=== PATIENT | male | born 1935 | race Caucasian/White ===

== ENCOUNTER 2019-03-30 08:56 | Emergency (ER) | payer OTHER ==
[2019-03-30] MEDS ORDERED: Sodium Chloride 0.9% 10 ML Syringe FLUSH PRN (09:17)
--- NOTE | 2019-03-30 10:02 | CT ---
Clinical history: 83-year-old 188 pound male with headache and "slurred speech", past 2 days. No known trauma. Scan technique: Volume acquisition of data emergency unenhanced CT scan of the head and brain obtained while the patient was lying supine on the Siemens multi slice scanner [place], [place]. All data archived in the PACS system for storage, reformatting axial/sagittal/coronal planes and study. Interpretation: Abnormal. 1. Lacunar infarct thalamus, basal ganglia, deep in the left cerebral hemisphere. Multiple scattered low-attenuation (ischemic) lesions throughout the periventricular white matter of both cerebral hemispheres. Mild atrophy. 2. Symmetric mirror-image normal appearing ventricular system i.e. no hydrocephalus. Punctate pineal and symmetric dense choroid plexus calcifications. No sign of acute intracerebral/intraventricular/subarachnoid bleed. 3. Uniformly thick bony calvarium without sign of pathologic skeletal lesion, fracture, underlying brain contusion or epidural/subdural hematoma. Symmetric clear pneumatization of the paranasal and mastoid sinuses. 4. Cerebellum and brainstem unremarkable. CONCLUSION: Multi-infarct ischemic disease both cerebral hemispheres (largest lacunar infarct thalamus, on the left). No sign of intracranial mass, hydrocephalus or bleed.
[2019-03-30 10:33] LABS: ANION GAP 15.3; CHLORIDE,CL 100 mmol/L (101-111); SODIUM,NA 137 mmol/L (135-145)
--- NOTE | 2019-03-30 10:46 | EDM.PDOC ---
ED HPI GENERAL MEDICAL PROBLEM - General Chief Complaint: Neuro Symptoms/Deficits Stated Complaint: SIDE HEADACH [id number] Time Seen by Provider: 03/30/19 09:30 Source of Information: Reports: Patient, RN, RN Notes Reviewed History Limitations: Reports: No Limitations - History of Present Illness INITIAL COMMENTS - FREE TEXT/NARRATIVE: Patient presents to ER with complaint of passing out on Saturday (just before noon) unwtnessed he states at [place]. He hit his head "old lady" tried to pick him up. He has had no headaches, recent illness, fever, chills, nausea, vomiting , diarrhea, weakness, numbness, tingling and pain. Onset Date: 03/28/19 Duration: Constant Location: Reports: Head Quality: Reports: Ache Severity: Moderate Improves with: Reports: None Worsens with: Reports: None Associated Symptoms: Reports: No Other Symptoms Right Head Pain Score (Numeric/FACES): 2 - Related Data Allergies Allergy/AdvReac Type Severity Reaction Status Date / Time No Known Allergies Allergy Verified 03/30/19 09:19 Past Medical History Cardiovascular History: Reports: High Cholesterol Social & Family History - Tobacco Use Smoking Status *Q: Never Smoker - Recreational Drug Use Recreational Drug Use: No ED ROS GENERAL - Review of Systems Review Of Systems: ROS reveals no pertinent complaints other than HPI. - Physical Exam Exam: See Below Exam Limited By: No Limitations General Appearance: Alert, WD/WN, No Apparent Distress Eye Exam: Bilateral Eye: Other (Pupils 2 brisk) Ears: Normal External Exam, Normal Canal, Hearing Grossly Normal, Normal TMs Throat/Mouth: Normal Inspection, Normal Lips, Normal Teeth, Normal Gums, Normal Oropharynx, Normal Voice, No Airway Compromise Head Exam: Atraumatic, Normocephalic Neck: Normal Inspection, Supple, Non-Tender, Full Range of Motion Respiratory/Chest: Crackles (bases), Wheezing, Other (diminished breath sounds) Cardiovascular: Normal Peripheral Pulses, Regular Rate, Rhythm, No Edema, No Gallop, No JVD, No Murmur, No Rub GI/Abdominal: Normal Bowel Sounds, Soft, Non-Tender, No Organomegaly, No Distention, No Abnormal Bruit, No Mass (Male) Exam: Deferred Rectal (Males) Exam: Deferred Neuro Exam (Abbreviated): Alert, Oriented, CN II-XII Intact, Normal Cognition, Normal Gait, Normal Reflexes, No Motor/Sensory Deficits Back Exam: Normal Inspection, Full Range of Motion, NT Extremities: Normal Inspection, Normal Range of Motion, Non-Tender, No Pedal Edema, Normal Capillary Refill Psychiatric: Normal Affect, Normal Mood Skin Exam: Warm, Dry, Intact, Normal Color, No Rash Course - Vital Signs Last Recorded V/S: Last Vital Signs Temp 98.2 F 03/30/19 09:22 Pulse 85 03/30/19 09:22 Resp 16 03/30/19 09:22 BP 139/83 03/30/19 09:22 Pulse Ox 95 03/30/19 09:22 - Orders/Labs/Meds Orders: Active Orders 24 hr Category Date Time Status EKG Documentation Completion [RC] STAT Care 03/30/19 09:17 Active Peripheral IV Care [RC] . DIRECTED Care 03/30/19 09:18 Active Peripheral IV Insertion Adult [OM.PC] Stat Oth 03/30/19 09:17 Ordered Labs: Laboratory Tests 03/30/19 03/30/19 03/30/19 Range/Units 09:40 09:40 09:40 WBC 8.5 (5.0-10.0) 10^3/uL RBC 5.25 (4.6-6.2) 10^6/uL Hgb 16.7 (14.0-18.0) g/dL Hct 50.0 (40.0-54.0) % MCV 95.2 (80-100) fL MCH 31.8 (27.0-34.0) pg MCHC 33.4 (33.0-35.0) g/dL Plt Count 222 (150-450) 10^3/uL Neut % (Auto) 69.1 (42.2-75.2) % Lymph % (Auto) 19.4 L (20.5-50.1) % Collier % (Auto) 9.2 H (2-8) % Eos % (Auto) 2.2 (1.0-3.0) % Baso % (Auto) 0.1 (0.0-1.0) % PT 9.3 (9.0-12.0) SEC INR 0.9 (0.9-1.2) Sodium 137 (135-145) mmol/L Potassium 4.3 (3.6-5.0) mmol/L Chloride 100 L (101-111) mmol/L Carbon Dioxide 26.0 (21.0-31.0) mmol/L Anion Gap 15.3 BUN 18 (7-18) mg/dL Creatinine 0.8 (0.6-1.3) mg/dL Est Cr Clr Drug Dosing 55.93 mL/min Estimated GFR (MDRD) > 60 BUN/Creatinine Ratio 22.50 Glucose 107 H (74-105) mg/dL Calcium 8.7 (8.4-10.2) mg/dl Total Bilirubin 0.5 (0.2-1.0) mg/dL AST 22 (10-42) IU/L ALT 23 (10-60) IU/L Alkaline Phosphatase 42 (42-121) IU/L Troponin I < 0.02 (0.00-0.02) ng/ml Total Protein 6.6 L (6.7-8.2) g/dl Albumin 4.0 (3.2-5.5) g/dl Globulin 2.6 Albumin/Globulin Ratio 1.54 Urine Color (YELLOW) Urine Appearance (CLEAR) Urine pH (5.0-9.0) Ur Specific [place] (1.005-1.030) Urine Protein (NEGATIVE) Urine Glucose (UA) (NEGATIVE) Urine Ketones (NEGATIVE) Urine Occult Blood (NEGATIVE) Urine Nitrite (NEGATIVE) Urine Bilirubin (NEGATIVE) Urine Urobilinogen (0.2-1.0) mg/dL Ur Leukocyte Esterase (NEGATIVE) Urine Opiates Screen (NEGATIVE) Ur Oxycodone Screen (NEGATIVE) Urine Methadone Screen (NEGATIVE) Ur Barbiturates Screen (NEGATIVE) U Tricyclic Antidepress (NEGATIVE) Ur Phencyclidine Scrn (NEGATIVE) Ur Amphetamine Screen (NEGATIVE) U Methamphetamines Scrn (NEGATIVE) Urine MDMA Screen (NEGATIVE) U Benzodiazepines Scrn (NEGATIVE) Urine Cocaine Screen (NEGATIVE) U Marijuana (THC) Screen (NEGATIVE) Ethyl Alcohol < 5 mg/dL 03/30/19 03/30/19 Range/Units 10:00 10:00 WBC (5.0-10.0) 10^3/uL RBC (4.6-6.2) 10^6/uL Hgb (14.0-18.0) g/dL Hct (40.0-54.0) % MCV (80-100) fL MCH (27.0-34.0) pg MCHC (33.0-35.0) g/dL Plt Count (150-450) 10^3/uL Neut % (Auto) (42.2-75.2) % Lymph % (Auto) (20.5-50.1) % Collier % (Auto) (2-8) % Eos % (Auto) (1.0-3.0) % Baso % (Auto) (0.0-1.0) % PT (9.0-12.0) SEC INR (0.9-1.2) Sodium (135-145) mmol/L Potassium (3.6-5.0) mmol/L Chloride (101-111) mmol/L Carbon Dioxide (21.0-31.0) mmol/L Anion Gap BUN (7-18) mg/dL Creatinine (0.6-1.3) mg/dL Est Cr Clr Drug Dosing mL/min Estimated GFR (MDRD) BUN/Creatinine Ratio Glucose (74-105) mg/dL Calcium (8.4-10.2) mg/dl Total Bilirubin (0.2-1.0) mg/dL AST (10-42) IU/L ALT (10-60) IU/L Alkaline Phosphatase (42-121) IU/L Troponin I (0.00-0.02) ng/ml Total Protein (6.7-8.2) g/dl Albumin (3.2-5.5) g/dl Globulin Albumin/Globulin Ratio Urine Color Yellow (YELLOW) Urine Appearance Clear (CLEAR) Urine pH 5.5 (5.0-9.0) Ur Specific [place] 1.010 (1.005-1.030) Urine Protein Negative (NEGATIVE) Urine Glucose (UA) Negative (NEGATIVE) Urine Ketones Negative (NEGATIVE) Urine Occult Blood Negative (NEGATIVE) Urine Nitrite Negative (NEGATIVE) Urine Bilirubin Negative (NEGATIVE) Urine Urobilinogen 0.2 (0.2-1.0) mg/dL Ur Leukocyte Esterase Negative (NEGATIVE) Urine Opiates Screen Negative (NEGATIVE) Ur Oxycodone Screen Negative (NEGATIVE) Urine Methadone Screen Negative (NEGATIVE) Ur Barbiturates Screen Negative (NEGATIVE) U Tricyclic Antidepress Negative (NEGATIVE) Ur Phencyclidine Scrn Negative (NEGATIVE) Ur Amphetamine Screen Negative (NEGATIVE) U Methamphetamines Scrn Negative (NEGATIVE) Urine MDMA Screen Negative (NEGATIVE) U Benzodiazepines Scrn Negative (NEGATIVE) Urine Cocaine Screen Negative (NEGATIVE) U Marijuana (THC) Screen Negative (NEGATIVE) Ethyl Alcohol mg/dL Meds: Medications Discontinued Medications Generic Name Dose Route Start Last Admin Trade Name Meng PRN Reason Stop Dose Admin Sodium Chloride 10 ml 03/30/19 09:17 03/30/19 09:34 Saline Flush FLUSH 10 ml ASDIRECTED PRN Administration Keep Vein Open - Radiology Interpretation Free Text/Narrative:: Head CT: Multi-infarct ischemic disease both cerebral hemispheres (largest lacunar infarct thalamus, on the left). No sign of intracranial mass, hydrocephalus or bleed. See rad report - Re-Assessments/Exams Free Text/Narrative Re-Assessment/Exam: 03/30/19 11:05 Discussed patient case with Zaina Norris RN at the [facility]. An appointment was set up for tomorrow morning for the patient at 0800 at the [facility] and the patient will see his primary care provider, will be referred to neurology. 03/30/19 11:18 Departure - Departure Time of Disposition: 11:22 Disposition: Home, Self-Care 01 Condition: Fair Clinical Impression: Ischemic stroke Episode of syncope Qualifiers: Syncope type: unspecified Qualified Code(s): R55 - Syncope and collapse - Discharge Information *PRESCRIPTION DRUG MONITORING PROGRAM REVIEWED*: No *COPY OF PRESCRIPTION DRUG MONITORING REPORT IN PATIENT JING: No Instructions: Lacunar Stroke, Ischemic Stroke, [id number], Syncope, Easy-to- Read Referrals: PCP,None [Primary Care Provider] - Forms: ED Department Discharge Additional Instructions: Appointment with Shelby at the [facility] at 8:00 AM tomorrow, 03-31-19 [facility] Return to the ER with any further problems - My Orders Last 24 Hours: My Active Orders 03/30/19 09:17 EKG Documentation Completion [RC] STAT Peripheral IV Insertion Adult [OM.PC] Stat 03/30/19 09:18 Peripheral IV Care [RC] . DIRECTED - Assessment/Plan Last 24 Hours: My Active Orders 03/30/19 09:17 EKG Documentation Completion [RC] STAT Peripheral IV Insertion Adult [OM.PC] Stat 03/30/19 09:18 Peripheral IV Care [RC] . DIRECTED
== END 2019-03-30 11:34 | disposition home or self-care (01) ==
LOC: DL.ED 08:56
DX: I63.9 Cerebral infarction, unspecified (principal); R55 Syncope and collapse
CPT/HCPCS: 36415; 70450; 80053; 80305; 81003; 84484; 85025; 85610; 93005; 99284; G0480

== ENCOUNTER 2020-01-06 10:17 | Emergency (ER) | payer OTHER ==
[2020-01-06] MEDS ORDERED: Albuterol/Ipratropium 3.0-0.5 MG/3 ML Neb Soln NEB ONE (10:43)
[2020-01-06] MEDS ORDERED: methylPREDNISolone Sodium Succinate 125 MG/2 ML SDV IVPUSH ONE (10:43)
[2020-01-06] MEDS ORDERED: Sodium Chloride 0.9% 10 ML Syringe FLUSH PRN (10:44)
--- NOTE | 2020-01-06 10:57 | EDM.PDOC ---
<Lucas Ortiz - Last Filed: 01/06/20 11:19> ED HPI GENERAL MEDICAL PROBLEM - General Chief Complaint: Respiratory Problem Stated Complaint: CAN'T WALK/SLURRED SPEECH Time Seen by Provider: 01/06/20 10:52 Source of Information: Reports: Patient, RN, RN Notes Reviewed History Limitations: Reports: Altered Mental Status, Respiratory Distress - History of Present Illness INITIAL COMMENTS - FREE TEXT/NARRATIVE: Patient arrived from the [place] clinic today with reports of diarrhea x 2 today. Patient states that he was unable to walk at home on Saturday and didn't know his brothers number so couldn't call him and couldn't scoot to the phone to call anybody. The brother went to get him today for an appointment and patient was able to transfer to the car. Patient transferred from wheelchair to bed while in ED with ease but was slow and appears weak. Patient is hard of hearing and a poor historian. When he arrived at the [place] clinic he was not on oxygen and his O2 sat was 60s. After being on oxygen in the ED his O2 sat has been 88-90. Onset: Today Location: Reports: Head, Chest Severity: Moderate Improves with: Reports: Other (oxygen) Worsens with: Reports: None Associated Symptoms: Reports: Confusion, Cough, Shortness of Breath. Denies: cough w sputum, Fever/Chills, Headaches, Syncope, Weakness Right Abdomen Pain Score (Numeric/FACES): 4 - Related Data Allergies Allergy/AdvReac Type Severity Reaction Status Date / Time No Known Allergies Allergy Verified 01/06/20 10:50 Past Medical History Cardiovascular History: Reports: High Cholesterol ED ROS GENERAL - Review of Systems Review Of Systems: See Below Constitutional: Reports: Fatigue. Denies: Fever, Chills HEENT: Reports: No Symptoms Respiratory: Reports: Shortness of Breath, Cough Cardiovascular: Denies: Chest Pain, Lightheadedness, Syncope Endocrine: Reports: No Symptoms GI/Abdominal: Reports: Abdominal Pain, Diarrhea. Denies: Nausea, Vomiting : Reports: No Symptoms Musculoskeletal: Reports: No Symptoms Skin: Denies: Pallor, Diaphoresis, Dryness, Bruising, Erythema Neurological: Reports: Confusion, Trouble Speaking, Difficulty Walking, Weakness. Denies: Headache, Seizure, Syncope Psychiatric: Reports: Confusion. Denies: Agitation, Anxiety Hematologic/Lymphatic: Reports: No Symptoms Immunologic: Reports: No Symptoms ED EXAM, GENERAL - Physical Exam Exam: See Below Exam Limited By: Respiratory Distress General Appearance: Mild Distress Head: Atraumatic Neck: Normal Inspection, Supple, Non-Tender, Full Range of Motion Respiratory/Chest: Respiratory Distress, Decreased Breath Sounds, Crackles, Wheezing Cardiovascular: Normal Peripheral Pulses, Regular Rate, Rhythm, No Edema, No Gallop, No JVD, No Murmur, No Rub GI/Abdominal: Normal Bowel Sounds, Soft, No Distention, No Abnormal Bruit, Tender (RUQ pain) (Male) Exam: Deferred Rectal (Males) Exam: Deferred Neurological: Alert, Confused. No: Normal Cognition Psychiatric: Normal Affect, Normal Mood Skin Exam: Warm, Dry, Intact, Normal Color, No Rash Lymphatic: No Adenopathy Course - Vital Signs Last Recorded V/S: Last Vital Signs Temp 97.6 F 01/06/20 10:51 Pulse 100 01/06/20 10:51 Resp 28 H 01/06/20 10:51 BP 132/72 01/06/20 10:51 Pulse Ox 65 L 01/06/20 10:51 - Orders/Labs/Meds Orders: Active Orders 24 hr Category Date Time Status EKG 12 Lead [EKG Documentation Completion] [RC] STAT Care 01/06/20 10:44 Active Peripheral IV Care [RC] . DIRECTED Care 01/06/20 10:45 Active RT Aerosol Therapy [RC] ASDIRECTED Care 01/06/20 10:43 Active Chest 1V Frontal [CR] Stat Exams 01/06/20 10:44 Taken CULTURE BLOOD [BC] Stat Lab 01/06/20 11:36 Received CULTURE BLOOD [BC] Stat Lab 01/06/20 11:40 Received UA RFX ALYSON AND CULT IF INDIC [URIN] Stat Lab 01/06/20 10:45 Ordered Piperacillin/Tazobactam [Zosyn] 3.375 gm Med 01/06/20 12:10 Active Sodium Chloride 0.9% [Normal Saline] 100 ml IV ONETIME Potassium Chloride [KCl 10 MEQ in Water 100 ML] 10 meq Med 01/06/20 11:30 Active Premix Bag 1 bag IV ONETIME Sodium Chloride 0.9% [Normal Saline] 1,000 ml Med 01/06/20 12:19 Active IV .BOLUS Sodium Chloride 0.9% [Saline Flush] Med 01/06/20 10:44 Active 10 ml FLUSH ASDIRECTED PRN Blood Culture x2 Reflex Set [OM.PC] Stat Oth 01/06/20 10:45 Ordered Peripheral IV Insertion Adult [OM.PC] Stat Oth 01/06/20 10:44 Ordered Medication Orders Potassium Chloride 10 meq/ (Premix) 100 mls @ 100 mls/hr IV ONETIME ONE Stop: 01/06/20 12:29 Last Admin: 01/06/20 11:46 Dose: 100 mls/hr Piperacillin Sod/Tazobactam (Sod 3.375 gm/ Sodium Chloride) 100 mls @ 200 mls/ hr IV ONETIME ONE Stop: 01/06/20 12:39 Sodium Chloride (Normal Saline) 1,000 mls @ 999 mls/hr IV .BOLUS ONE Stop: 01/06/20 13:19 Sodium Chloride (Saline Flush) 10 ml FLUSH ASDIRECTED PRN PRN Reason: Keep Vein Open Last Admin: 01/06/20 11:02 Dose: 10 ml Labs: Laboratory Tests 01/06/20 01/06/20 01/06/20 Range/Units 10:47 10:47 10:47 WBC 10.1 H (5.0-10.0) 10^3/uL RBC 4.84 (4.6-6.2) 10^6/uL Hgb 15.0 D (14.0-18.0) g/dL Hct 45.8 (40.0-54.0) % MCV 94.6 (80-100) fL MCH 31.0 (27.0-34.0) pg MCHC 32.8 L (33.0-35.0) g/dL Plt Count 403 D (150-450) 10^3/uL Neut % (Auto) 79.5 H (42.2-75.2) % Lymph % (Auto) 10.0 L (20.5-50.1) % [place] % (Auto) 10.3 H (2-8) % Eos % (Auto) 0.0 L (1.0-3.0) % Baso % (Auto) 0.2 (0.0-1.0) % PT 10.7 (9.0-12.0) SEC INR 1.0 (0.9-1.2) APTT 26.2 (22.0-34.0) SEC ABG pH (7.35-7.45) ABG pCO2 (35-45) mmHg ABG pO2 (70-100) mmHg ABG HCO3 (22-26) mmol/L ABG O2 Saturation (95-100) % ABG Base Excess ((-2)-(+3)) mmol/L Nate Test O2 Delivery Device Sodium 136 (135-145) mmol/L Potassium 2.5 L D (3.6-5.0) mmol/L Chloride 80 L D (101-111) mmol/L Carbon Dioxide 39.0 H D (21.0-31.0) mmol/L Anion Gap 19.5 BUN 15 (7-18) mg/dL Creatinine 1.0 (0.6-1.3) mg/dL Est Cr Clr Drug Dosing 40.28 mL/min Estimated GFR (MDRD) > 60 BUN/Creatinine Ratio 15.00 Glucose 113 H (74-105) mg/dL Lactic Acid (0.5-2.0) mmol/L Calcium 9.4 (8.4-10.2) mg/dl Total Bilirubin 1.0 (0.2-1.0) mg/dL AST 40 (10-42) IU/L ALT 28 (10-60) IU/L Alkaline Phosphatase 87 (42-121) IU/L Troponin I 0.04 H* (0.00-0.02) ng/ml B-Natriuretic Peptide 101 H (0-100) pg/ml Total Protein 6.7 (6.7-8.2) g/dl Albumin 3.0 L (3.2-5.5) g/dl Globulin 3.7 Albumin/Globulin Ratio 0.81 Ethyl Alcohol < 5 mg/dL 01/06/20 01/06/20 Range/Units 11:16 11:36 WBC (5.0-10.0) 10^3/uL RBC (4.6-6.2) 10^6/uL Hgb (14.0-18.0) g/dL Hct (40.0-54.0) % MCV (80-100) fL MCH (27.0-34.0) pg MCHC (33.0-35.0) g/dL Plt Count (150-450) 10^3/uL Neut % (Auto) (42.2-75.2) % Lymph % (Auto) (20.5-50.1) % [place] % (Auto) (2-8) % Eos % (Auto) (1.0-3.0) % Baso % (Auto) (0.0-1.0) % PT (9.0-12.0) SEC INR (0.9-1.2) APTT (22.0-34.0) SEC ABG pH 7.47 H (7.35-7.45) ABG pCO2 60 H (35-45) mmHg ABG pO2 59 L (70-100) mmHg ABG HCO3 42.6 H (22-26) mmol/L ABG O2 Saturation 87 L (95-100) % ABG Base Excess 16 H ((-2)-(+3)) mmol/L Nate Test Performed O2 Delivery Device Nasal cannula Sodium (135-145) mmol/L Potassium (3.6-5.0) mmol/L Chloride (101-111) mmol/L Carbon Dioxide (21.0-31.0) mmol/L Anion Gap BUN (7-18) mg/dL Creatinine (0.6-1.3) mg/dL Est Cr Clr Drug Dosing mL/min Estimated GFR (MDRD) BUN/Creatinine Ratio Glucose (74-105) mg/dL Lactic Acid 4.1 H* (0.5-2.0) mmol/L Calcium (8.4-10.2) mg/dl Total Bilirubin (0.2-1.0) mg/dL AST (10-42) IU/L ALT (10-60) IU/L Alkaline Phosphatase (42-121) IU/L Troponin I (0.00-0.02) ng/ml B-Natriuretic Peptide (0-100) pg/ml Total Protein (6.7-8.2) g/dl Albumin (3.2-5.5) g/dl Globulin Albumin/Globulin Ratio Ethyl Alcohol mg/dL Meds: Medications Generic Name Dose Route Start Last Admin Trade Name Freq PRN Reason Stop Dose Admin Potassium Chloride 10 meq/ 100 mls @ 100 mls/hr 01/06/20 11:30 01/06/20 11:46 Premix IV 01/06/20 12:29 100 mls/hr ONETIME ONE Administration Piperacillin Sod/Tazobactam 100 mls @ 200 mls/hr 01/06/20 12:10 Sod 3.375 gm/ Sodium Chloride IV 01/06/20 12:39 ONETIME ONE Sodium Chloride 1,000 mls @ 999 mls/hr 01/06/20 12:19 Normal Saline IV 01/06/20 13:19 .BOLUS ONE Sodium Chloride 10 ml 01/06/20 10:44 01/06/20 11:02 Saline Flush FLUSH 10 ml ASDIRECTED PRN Administration Keep Vein Open Discontinued Medications Generic Name Dose Route Start Last Admin Trade Name Freq PRN Reason Stop Dose Admin Albuterol/Ipratropium 3 ml 01/06/20 10:43 01/06/20 11:01 Duoneb 3.0-0.5 Mg/3 Ml NEB 01/06/20 10:44 3 ml ONETIME ONE Administration Lidocaine HCl 1 ml 01/06/20 11:31 01/06/20 11:46 Xylocaine-Mpf 1% INJECT 01/06/20 11:32 1 ml ONETIME ONE Administration Methylprednisolone Sodium Succinate 125 mg 01/06/20 10:43 01/06/20 11:02 Solu-Medrol IVPUSH 01/06/20 10:44 125 mg ONETIME ONE Administration Potassium Chloride 60 meq 01/06/20 11:29 01/06/20 11:43 Klor-Con 10 PO 01/06/20 11:30 60 meq ONETIME ONE Administration Departure - Departure Disposition: DC/Tfer to [facility] 02 Clinical Impression: Pleural effusion, right, Hypokalemia, Elevated troponin Sepsis Qualifiers: Sepsis type: sepsis due to unspecified organism Sepsis acute organ dysfunction status: with acute organ dysfunction Severe sepsis acute organ dysfunction type : acute respiratory failure Acute respiratory failure type: with hypoxia Severe sepsis shock status: without septic shock Qualified Code(s): A41.9 - Sepsis, unspecified organism; R65.20 - Severe sepsis without septic shock; J96.01 - Acute respiratory failure with hypoxia Acute on chronic respiratory failure Qualifiers: Respiratory failure complication: hypoxia and hypercapnia Qualified Code(s): J96.21 - Acute and chronic respiratory failure with hypoxia; J96.22 - Acute and chronic respiratory failure with hypercapnia - Discharge Information Forms: ED Department Discharge, Interfacility Transfer [facility] Sepsis Event Note - Focused Exam Vital Signs: Vital Signs Temp Pulse Resp BP Pulse Ox Pulse Ox 01/06/20 10:51 97.6 F 100 28 H 132/72 65 L 01/06/20 10:43 93 90 L Date Exam was Performed: 01/06/20 Time Exam was Performed: 11:19 - My Orders Last 24 Hours: My Active Orders 01/06/20 10:43 RT Aerosol Therapy [RC] ASDIRECTED 01/06/20 10:44 EKG 12 Lead [EKG Documentation Completion] [RC] STAT Chest 1V Frontal [CR] Stat Sodium Chloride 0.9% [Saline Flush] 10 ml FLUSH ASDIRECTED PRN Peripheral IV Insertion Adult [OM.PC] Stat 01/06/20 10:45 Peripheral IV Care [RC] . DIRECTED UA RFX ALYSON AND CULT IF INDIC [URIN] Stat Blood Culture x2 Reflex Set [OM.PC] Stat 01/06/20 11:30 Potassium Chloride [KCl 10 MEQ in Water 100 ML] 10 meq Premix Bag 1 bag IV ONETIME 01/06/20 11:36 CULTURE BLOOD [BC] Stat 01/06/20 11:40 CULTURE BLOOD [BC] Stat 01/06/20 12:10 Piperacillin/Tazobactam [Zosyn] 3.375 gm Sodium Chloride 0.9% [Normal Saline] 100 ml IV ONETIME 01/06/20 12:19 Sodium Chloride 0.9% [Normal Saline] 1,000 ml IV .BOLUS - Assessment/Plan Last 24 Hours: My Active Orders 01/06/20 10:43 RT Aerosol Therapy [RC] ASDIRECTED 01/06/20 10:44 EKG 12 Lead [EKG Documentation Completion] [RC] STAT Chest 1V Frontal [CR] Stat Sodium Chloride 0.9% [Saline Flush] 10 ml FLUSH ASDIRECTED PRN Peripheral IV Insertion Adult [OM.PC] Stat 01/06/20 10:45 Peripheral IV Care [RC] . DIRECTED UA RFX ALYSON AND CULT IF INDIC [URIN] Stat Blood Culture x2 Reflex Set [OM.PC] Stat 01/06/20 11:30 Potassium Chloride [KCl 10 MEQ in Water 100 ML] 10 meq Premix Bag 1 bag IV ONETIME 01/06/20 11:36 CULTURE BLOOD [BC] Stat 01/06/20 11:40 CULTURE BLOOD [BC] Stat 01/06/20 12:10 Piperacillin/Tazobactam [Zosyn] 3.375 gm Sodium Chloride 0.9% [Normal Saline] 100 ml IV ONETIME 01/06/20 12:19 Sodium Chloride 0.9% [Normal Saline] 1,000 ml IV .BOLUS <Lisa Quezadaian - Last Filed: 01/06/20 12:34> ED HPI GENERAL MEDICAL PROBLEM - History of Present Illness INITIAL COMMENTS - FREE TEXT/NARRATIVE: Pt reports progressively worsening shortness of breath for about 1 week. He is home oxygen dependent. Unsure if any fever or not. Long tobacco/cigarette history, but quit smoking 4 months ago. Denies chest pain. Reports severe generalized weakness x4 days. Pt lives alone. Past Medical History Respiratory History: Reports: COPD Social & Family History - Tobacco Use Smoking Status *Q: Heavy Tobacco Smoker Tobacco Use Within Last Twelve Months: Cigarettes Month/Year Tobacco Last Used: 2018 - Alcohol Use Alcohol Use History: No - Recreational Drug Use Recreational Drug Use: No - Living Situation & Occupation Living situation: Reports: Alone Occupation: Retired EKG INTERPRETATION EKG Date: 01/06/20 Time: 10:42 Rhythm: Other (SR) Rate (Beats/Min): 97 [place]: Normal P-Wave: Present QRS: Other (low voltage) ST-T: Normal (borderline flat in lateral leads) QT: Normal Comparison: NA - No Prior EKG Course - Radiology Interpretation Free Text/Narrative:: [facility] [place] [facility] Final Radiology Report Call: [phone] assistance Online chat: [email or web address] Name: KILEY RESENDIZ Age: 84Years M Date: 01/06/2020 SSN: -- : [id number] Study: XR CHEST 1 VIEW FRONTAL Requesting Physician: LISA QUEZADA Images: 1 Addl Studies: Provided Clinical History: Contrast: Contrast Medium: Contrast Amount: Contrast Method: CONFIDENTIALITY STATEMENT This report is intended only for use by the referring physician, and only in accordance with law. If you received this in error, call [phone]. Page 1 of 1 PROCEDURE INFORMATION: Exam: XR Chest, 1 View Exam date and time: 01/06/2020 11:05 AM Age: 84 years old Clinical indication: Shortness of breath and other: Hypoxia TECHNIQUE: Imaging protocol: XR of the chest Views: 1 view. COMPARISON: CR Chest 2V 08/08/2018 12:40 PM FINDINGS: Lungs: There is near complete whiteout of the right lung. The mediastinum is midline so likely this is a combination of atelectasis and effusion. There is some aeration noted involving the right base. The left lung is clear. Pleural space: See above. No pneumothorax. Heart/Mediastinum: See Lungs Finding. Bones/joints: Arthritic changes noted in the shoulders. IMPRESSION: Near complete opacification of the right hemithorax. This should mediastinum is not shifted so this likely represents a combination of atelectasis and effusion. Thank you for allowing us to participate in the care of your patient. Dictated and Authenticated by: Govind Moralez MD 01/06/2020 11:19 AM Central Time ([place] & [place]) - Re-Assessments/Exams Free Text/Narrative Re-Assessment/Exam: 01/06/20 12:30 I personally performed or re-performed the physical examination and medical decision making. I have verified all student documentation or findings, including history, physical exam and/or medical decision making. [facility] contacted and approves pt [facility] and approves hospitalization at [facility] in . Dr. Candelario accepts the pt to [facility] as a direct admit. Departure - Departure Time of Disposition: 12:31 Condition: Critical - Discharge Information *PRESCRIPTION DRUG MONITORING PROGRAM REVIEWED*: Not Applicable *COPY OF PRESCRIPTION DRUG MONITORING REPORT IN PATIENT JING: Not Applicable Sepsis Event Note - Focused Exam Date Exam was Performed: 01/06/20 Time Exam was Performed: 12:23
[2020-01-06 11:21] LABS: ALLEN TEST PERFORMED; BASE EXCESS ARTERIAL 16 mmol/L ((-2)-(+3)); BICARBONATE,ARTERIAL 42.6 mmol/L (22-26); O2 DELIVERY DEVICE NASAL CANNULA; O2 SATURATION ARTERIAL 87 % (95-100); PCO2 ARTERIAL 60 mmHg (35-45); PO2 ARTERIAL 59 mmHg (70-100)
[2020-01-06 11:26] LABS: CHLORIDE,CL 80 mmol/L (101-111); SODIUM,NA 136 mmol/L (135-145)
[2020-01-06 11:28] LABS: ANION GAP 19.5
[2020-01-06] MEDS ORDERED: Potassium Chloride 10 MEQ Tab.ER PO ONE (11:29)
[2020-01-06] MEDS ORDERED: Potassium Chloride 10 MEQ in Premix Bag 1 BAG IV ONE (11:30)
[2020-01-06] MEDS ORDERED: Lidocaine 1% 30 ML SDV INJECT ONE (11:31)
[2020-01-06] MEDS ORDERED: Piperacillin/Tazobactam 3.375 GM in Sodium Chloride 0.9% 100 ML IV ONE (12:10)
[2020-01-06] MEDS ORDERED: Sodium Chloride 0.9% 1,000 ML IV ONE (12:19)
== END 2020-01-06 12:50 ==
LOC: DL.ED 10:17
DX: A41.9 Sepsis, unspecified organism (principal); R65.20 Severe sepsis without septic shock; J96.21 Acute and chronic respiratory failure with hypoxia; J96.22 Acute and chronic respiratory failure with hypercapnia; E87.6 Hypokalemia; J90 Pleural effusion, not elsewhere classified; R79.89 Other specified abnormal findings of blood chemistry; R10.11 Right upper quadrant pain; Z99.81 Dependence on supplemental oxygen; Z87.891 Personal history of nicotine dependence
CPT/HCPCS: 36415; 36600; 71045; 80053; 80320; 82803; 83605; 83880; 84484; 85025; 85610; 85730; 87040; 93005; 94640; 96365; 96375; 99285; A9270; J2001; J2543; J2930; J3480; J7030; J7050; G0480; J7620-GY